=== PATIENT | female | born 1955 | race Caucasian/White ===

== ENCOUNTER → 2016-08-24 | Outpatient (CLI) | payer BC ==
[~2016-08-24] MED LIST: B-COTAB18 PO; CALC500C70 PO; CHOL1000 PO; EFFSR75 PO; EST5 PO; HYDR-3714 PO; MEDR2.5T PO; PRD5 PO; PROB1TAB16 PO
[2016-08-24 18:20] LABS: BASO % 0.3 %; BASO ABS # 0.02 K/uL (0-0.2); COMPLETE YES; EOS % 5.8 %; HEMATOCRIT 38.7 % (37-47); IG% 0.1 %; LYMPH ABS # 2.65 K/uL (1.2-3.4); MEAN CELL VOLUME 89.8 fL (80-100); MEAN CORPUSCULAR HEMOGLOBIN 30.4 pg (25-34); MEAN CORPUSCULAR HGB CONC 33.9 g/dl (32-36); MONO % 8.4 %; NEUT % 50.4 %; PLATELET COUNT 311 K/uL (130-400); RED BLOOD COUNT 4.31 M/uL (4.2-5.4); WHITE BLOOD COUNT 7.58 K/uL (4.8-10.8)
[2016-08-24 18:26] LABS: ALT/SGPT 35 U/L (12-78); AMYLASE 55 U/L (25-115); AST/SGOT 21 U/L (15-37); BLOOD UREA NITROGEN 12 mg/dl (7-18); BUN/CREATININE RATIO 16.3 (10-20); CARBON DIOXIDE 27 mmol/L (21-32); CHLORIDE 107 mmol/L (98-107); CREATININE 0.74 mg/dl (0.60-1.20); GLUCOSE 77 mg/dl (70-99); POTASSIUM 3.6 mmol/L (3.5-5.1); SODIUM 143 mmol/L (136-145)
[2016-08-24 18:36] LABS: ALB/GLOB RATIO 1.3 (0.9-2); ALKALINE PHOSPHATASE 68 U/L (45-117); THYROID STIMULATING HORMONE 0.614 uIu/ml (0.300-4.500)
== END | disposition home or self-care (01) ==
LOC: C.LABMFLN 10:46
PROVIDERS: ATTEND Family Medicine
DX: R10.11 Right upper quadrant pain (principal); R53.83 Other fatigue

== ENCOUNTER → 2016-08-29 | Outpatient (CLI) | payer BC ==
--- NOTE | 2016-08-29 08:11 | DIAGNOSTIC IMAGING REPORT ---
BILIARY ULTRASOUND CLINICAL HISTORY: Right upper quadrant abdominal pain COMPARISON STUDY: No previous studies for comparison. FINDINGS: The gallbladder appears sonographically normal. The liver appears sonographically normal. The pancreas appears sonographically normal. There is no ductal dilatation. The common bile duct measures 4 mm. There is an upper pole right renal cyst measuring 34 mm in diameter. IMPRESSION: 1. Upper pole right renal cyst. Otherwise normal biliary ultrasound. Electronically signed by: Be Mittal M.D. 08/29/2016 8:10 AM Dictated Date/Time: 08/29/2016 8:05 AM
== END | disposition home or self-care (01) ==
LOC: C.ULTR 07:34
PROVIDERS: ATTEND Family Medicine
DX: R10.11 Right upper quadrant pain (principal); N28.1 Cyst of kidney, acquired

== ENCOUNTER → 2016-11-30 | Outpatient (CLI) | payer BC ==
[~2016-11-30] MED LIST changes: -CALC500C70 PO; -EFFSR75 PO; -HYDR-3714 PO; -PRD5 PO
--- NOTE | 2016-11-30 13:14 | MAMMOGRAPHY REPORT ---
BILATERAL DIGITAL SCREENING MAMMOGRAM TOMOSYNTHESIS WITH CAD: 11/30/2016 CLINICAL HISTORY: Routine screening. Patient has no complaints. TECHNIQUE: Breast tomosynthesis in addition to standard 2D mammography was performed. Current study was also evaluated with a Computer Aided Detection (CAD) system. COMPARISON: Comparison is made to exams dated: 11/30/2015 mammogram, 11/27/2014 mammogram - [facility], 02/12/2010 mammogram, and 02/04/2010 mammogram - [facility]. BREAST COMPOSITION: The tissue of both breasts is extremely dense, which lowers the sensitivity of m ammography. FINDINGS: No suspicious masses, calcifications, or areas of architectural distortion are noted in ei ther breast. There has been no significant interval change compared to prior exams. Bilateral benign -appearing calcifications are not significantly changed dating back to the 2009 exam. IMPRESSION: ACR BI-RADS CATEGORY 2: BENIGN There is no mammographic evidence of malignancy. A 1 year screening mammogram is recommended. The pa tient will receive written notification of the results. Approximately 10% of breast cancers are not detected with mammography. A negative mammographic report should not delay biopsy if a clinically suggestive mass is present. Kasandra Costello M.D. /:11/30/2016 12:04:19 Account Planner: Ronna Martínez M, [facility] letter sent: Normal 1/2 BI-RADS Code: ACR BI-RADS Category 2: Benign
== END | disposition home or self-care (01) ==
LOC: C.MAMM 11:01
PROVIDERS: ATTEND Family Medicine
DX: Z12.31 Encounter for screening mammogram for malignant neoplasm of breast (principal)

== ENCOUNTER → 2016-12-01 | Day surgery (SDC) | payer BC ==
[2016-11-28 09:57] VITALS: Ht 162.6 cm; Wt 62.3 kg
[~2016-12-01] VITALS: Ht 162.6 cm; Wt 62.3 kg
[~2016-12-01] MED LIST changes: +LIDOCAINE HCL 2% 2 ML VIAL (20MG/ML) ONE; +PROPOFOL IV EMULSION 10 MG/ML 20 ML VIAL IV ONE; +SODIUM CHLORIDE 0.9% 500ML 500 ML IV ONE
--- NOTE | 2016-12-01 15:02 | Endo History and Physical ---
History & Physical Date of Service: Dec 01, 2016. Chief Complaint: RUQ Abd pain Referring Physician: Arlene Casillas History of Present Illness 61 yo CF who presents for EGD secondary to RUQ abdominal pain. Past Medical History Syncopal Episodes Past Surgical History Hx Cardiac Surgery: No Hx Internal Defibrillator: No Hx Pacemaker: No Hx Abdominal Surgery: Yes (UTERINE ABLATION) Hx of Implantable Prosthesis: No Hx Post-Op Nausea and Vomiting: No Hx Cancer Surgery: No Hx Thoracic Surgery: No Hx Orthopedic: No Hx Urinary Tract Surgery: No Family History IBD Social History Smoking Status: Never Smoker Hx Substance Use: No Hx Alcohol Use: Yes (BEER OR WINE 1-2 X/WEEK) Allergies Coded Allergies: Oxycodone (Verified Allergy, Severe, ANAPHYLAXIS, 12/01/16) Current Medications Reported Home Medications Medications Dose Route/Sig Max Daily Dose Days Date Category Provera (Medroxyprogesterone Acetate) 2.5 Mg Tab 2.5 Mg PO QAM 11/28/16 Reported Probiotic (Probiotic Product) 1 Tab Tab 1 Tab PO QAM 11/28/16 Reported Vitamin D3 (Cholecalciferol) 1,000 Unit Tab 1 Tab PO QAM 90 11/28/16 Reported Vitamin B Complex (B-Complex Vitamins) 1 Tab Tab 1 Tab PO QAM 11/28/16 Reported Estradiol 0.5 Mg Tab 0.5 Mg PO QAM 12/25/13 Reported Vital Signs Weight (Kilograms): 62.27 Height (Feet): 5 Height (Inches): 4 Date Time Temp Pulse Resp B/P (MAP) Pulse Ox O2 Delivery O2 Flow Rate FiO2 12/01/16 14:49 36.7 69 18 119/69 (86) 99 Room Air Physical Exam General Appearance: WD/WN, no apparent distress Respiratory/Chest: Auscultation: breath sounds normal Cardiovascular: Heart Auscultation: RRR Abdomen: Bowel Sounds: normal Inspection & Palpation: soft, non-distended, no tenderness, guarding & rebound Assessment and Plan Assessment: 61 yo CF who presents for EGD secondary to RUQ abdominal pain. Plan: Proceed with EGD.
--- NOTE | 2016-12-01 15:52 | Discharge Instructions ---
Endoscopy Patient Instructions Date / Procedure(s) Performed Dec 01, 2016. EGD Allergy Information Coded Allergies: Oxycodone (Verified Allergy, Severe, ANAPHYLAXIS, 12/01/16) Discharge Date / Findings Dec 01, 2016. Gastritis s/p biopsies Medication Instructions OK to resume all medications today as prescribed. Medications Dose Route/Sig Max Daily Dose Days Date Category Provera (Medroxyprogesterone Acetate) 2.5 Mg Tab 2.5 Mg PO QAM 11/28/16 Reported Probiotic (Probiotic Product) 1 Tab Tab 1 Tab PO QAM 11/28/16 Reported Vitamin D3 (Cholecalciferol) 1,000 Unit Tab 1 Tab PO QAM 90 11/28/16 Reported Vitamin B Complex (B-Complex Vitamins) 1 Tab Tab 1 Tab PO QAM 11/28/16 Reported Estradiol 0.5 Mg Tab 0.5 Mg PO QAM 12/25/13 Reported Provider Instructions Activity Restrictions - No exercising or heavy lifting for 24 hours. - Do not drink alcohol the day of the procedure. - Do not drive a car or operate machinery until the day after the procedure. - Do not make any important decisions or sign important papers in 24 hours after the procedure. Following Day: - Return to full activity which may include returning to work/school. Diet Start your diet with liquids and light foods (jello, soup, juice, toast). Then eat your usual diet if not nauseated. Treatment For Common After Affects For mild abdominal pain, bloating, or excessive gas: - Rest - Eat lightly - Lie on right side Follow-Up Information Follow-up with Arlene Casillas as scheduled Anesthesia Information What You Should Know You have had a procedure that required some medicine to reduce anxiety and discomfort. This treatment is called moderate sedation. After receiving the treatment, you may be sleepy, but you will be able to breathe on your own. The effects of the treatment may last for several hours. Follow these instructions along with Activity/Diet recommendations noted above: * Do NOT do anything where dizziness or clumsiness would be dangerous. * Rest quietly at home today, then you can be up and about tomorrow. * Have a responsible person stay with you the rest of today. * You may have had an I.V. today. If so, you may take the dressing off later today. Recommendations Call your doctor if: * Trouble breathing * Continuous vomiting for more than 24 hours * Temperature above 101 degrees * Severe abdominal pain or bloating * Pain not relieved by pain medicine ordered * There is increased drainage or redness from any incision * A large amount of rectal bleeding greater than 2-3 tablespoons. (If you had a polyp/s removed or have hemorrhoids, a small amount of blood - from the rectum is to be expected.) * You have any unanswered questions or concerns. IN THE EVENT OF A SERIOUS EMERGENCY, GO TO THE NEAREST EMERGENCY ROOM Your discharge instructions were prepared by provider Satnam Christopher. Patient Instructions Signature Page Melinda Santos Patient (or Guardian) Signature/Date: I have read and understand the instructions given to me by my caregivers. Caregiver/RN/Doctor Signature/Date: The above-named patient and/or guardian has received patient instructions on this date. + Original Patient Signature Page (only) stays with chart. Please make copy for patient.
--- NOTE | 2016-12-01 15:57 | GI REPORT ---
Procedure Date: 12/01/2016 3:20 PM Procedure: Upper GI endoscopy Indications: Abdominal pain in the right upper quadrant Medicines: Monitored Anesthesia Care Complications: No immediate complications. Estimated Blood Loss: Estimated blood loss: none. Procedure: Pre-Anesthesia Assessment: - Prior to the procedure, a History and Physical was performed, and patient medications and allergies were reviewed. The patient's tolerance of previous anesthesia was also reviewed. The risks and benefits of the procedure and the sedation options and risks were discussed with the patient. All questions were answered, and informed consent was obtained. Prior Anticoagulants: The patient has taken no previous anticoagulant or antiplatelet agents. ASA Grade Assessment: II - A patient with mild systemic disease. After reviewing the risks and benefits, the patient was deemed in satisfactory condition to undergo the procedure. After obtaining informed consent, the endoscope was passed under direct vision. Throughout the procedure, the patient's blood pressure, pulse, and oxygen saturations were monitored continuously. The Scope was introduced through the mouth, and advanced to the second part of duodenum. The upper GI endoscopy was accomplished without difficulty. The patient tolerated the procedure well. Findings: The esophagus was normal. Localized mild inflammation characterized by erythema was found in the gastric antrum. Biopsies were taken with a cold forceps for histology. The examined duodenum was normal. Impression: - Normal esophagus. - Gastritis. Biopsied. - Normal examined duodenum. Recommendation: - Resume previous diet. - Continue present medications. - Await pathology results. - Return to GI office as previously scheduled. Satnam Christopher, 12/01/2016 3:57:16 PM This report has been signed electronically. Note Initiated On: 12/01/2016 3:20 PM I attest to the content of the Intraoperative Record and orders documented therein, exceptions below
[2016-12-01 16:36] VITALS: BP 117/66; PULSE 75; O2SAT 97
--- NOTE | 2016-12-01 16:54 | Anesthesiology Progress Note ---
Anesthesia Post Op Note Date & Time Dec 01, 2016 at 16:54 Vital Signs Pain Intensity: 0 Vital Signs Past 12 Hours Date Time Temp Pulse Resp B/P (MAP) Pulse Ox O2 Delivery O2 Flow Rate FiO2 12/01/16 16:36 75 20 117/66 (83) 97 Room Air 12/01/16 16:15 70 20 100/57 (71) 99 Room Air 12/01/16 15:57 79 20 102/81 (88) 99 Room Air 12/01/16 14:49 36.7 69 18 119/69 (86) 99 Room Air Notes Mental Status: alert / awake / arousable, participated in evaluation Pt Amnestic to Procedure: Yes Nausea / Vomiting: adequately controlled Pain: adequately controlled Airway Patency, RR, SpO2: stable & adequate BP & HR: stable & adequate Hydration State: stable & adequate Anesthetic Complications: no major complications apparent
== END | disposition home or self-care (01) ==
LOC: C.GI 14:18
PROVIDERS: ATTEND Internal Medicine
DX: K29.50 Unspecified chronic gastritis without bleeding (principal); Z83.79 Family history of other diseases of the digestive system; Z79.899 Other long term (current) drug therapy

== ENCOUNTER → 2017-08-17 | Outpatient (CLI) | payer BC ==
[~2017-08-17] MED LIST changes: -LIDOCAINE HCL 2% 2 ML VIAL (20MG/ML) ONE; -PROPOFOL IV EMULSION 10 MG/ML 20 ML VIAL IV ONE; -SODIUM CHLORIDE 0.9% 500ML 500 ML IV ONE
== END | disposition home or self-care (01) ==
LOC: C.PAPS 09:48
PROVIDERS: ATTEND Obstetrics & Gynecology
DX: Z01.419 Encounter for gynecological examination (general) (routine) without abnormal findings (principal)

== ENCOUNTER → 2017-10-17 | Outpatient (CLI) | payer BC ==
[2017-10-17 17:46] LABS: BASO % 0.4 %; BASO ABS # 0.04 K/uL (0-0.2); EOS % 1.2 %; EOS ABS # 0.12 K/uL (0-0.5); HEMOGLOBIN 12.4 g/dL (12.0-16.0); IG# 0.02 K/uL (0.00-0.02); LYMPH ABS # 2.99 K/uL (1.2-3.4); MEAN CELL VOLUME 89.4 fL (80-100); MEAN CORPUSCULAR HGB CONC 33.5 g/dl (32-36); MEAN PLATELET VOLUME 9.2 fL (7.4-10.4); MONO % 4.9 %; MONO ABS # 0.47 K/uL (0.11-0.59); NEUT % 62.3 %; NEUT ABS # 6.02 K/uL (1.4-6.5); PLATELET COUNT 355 K/uL (130-400); RED CELL DISTRIBUTION WIDTH CV 13.2 % (11.5-14.5); RED CELL DISTRIBUTION WIDTH SD 43.6 fL (36.4-46.3); WHITE BLOOD COUNT 9.66 K/uL (4.8-10.8)
== END | disposition home or self-care (01) ==
LOC: C.LABMFLN 15:57
PROVIDERS: ATTEND Family Medicine
DX: M25.50 Pain in unspecified joint (principal)

== ENCOUNTER → 2018-01-22 | Outpatient (CLI) | payer BC | END | disposition home or self-care (01) | LOC: C.LABMFLN 15:16 | PROVIDERS: ATTEND Family Medicine | DX: R31.9 Hematuria, unspecified (principal) ==

== ENCOUNTER → 2018-02-05 | Outpatient (CLI) | payer BC | END | disposition home or self-care (01) | LOC: C.LABMFLN 11:45 | PROVIDERS: ATTEND Family Medicine | DX: R31.9 Hematuria, unspecified (principal) ==